=== PATIENT | male | born 1990 | race Caucasian/White ===

== ENCOUNTER 2016-05-24 09:59 | Emergency (ER) | payer OTHER ==
[~2016-05-24] VITALS: Ht 188 cm; Wt 109.1 kg
[2016-05-24 10:00] VITALS: BP 150/93; PULSE 92; RESP 18; O2SAT 98
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
--- NOTE | 2016-05-24 11:06 | DRSVH ---
PROCEDURE: X-RAY LEFT HAND, MINIMUM THREE VIEWS ([id number]) INDICATIONS: Head laceration. TECHNIQUE: 3 views of the hand(s) acquired. COMPARISON: None. FINDINGS: Bones: No fractures or dislocations. Carpal bones are normally aligned. No suspicious bony lesions . Soft tissues: No radiopaque foreign bodies. No suspicious soft tissue calcifications. IMPRESSION: 1. No fractures or radiopaque foreign bodies. Dictated by: Wil Maddox M.D. on 05/24/2016 at 11:04 Approved by: Wil Maddox M.D. on 05/24/2016 at 11:05
[2016-05-24] MEDS ORDERED: NPR500T PO (11:40)
[2016-05-24 12:12] VITALS: BP 129/69; PULSE 71; RESP 16; O2SAT 98
== END 2016-05-24 12:13 | disposition home or self-care (01) ==
LOC: SED 09:59
DX: S61.412A Laceration without foreign body of left hand, initial encounter (principal); W26.0XXA Contact with knife, initial encounter; Y93.89 Activity, other specified; Y92.9 Unspecified place or not applicable; Y99.8 Other external cause status; F17.200 Nicotine dependence, unspecified, uncomplicated

== ENCOUNTER 2016-06-03 16:12 | Emergency (ER) | payer OTHER ==
[~2016-06-03] VITALS: Ht 188 cm; Wt 109.1 kg
[~2016-06-03 16:12] MED LIST: NPR500T PO
[2016-06-03 16:16] VITALS: BP 122/75; PULSE 85; RESP 12; O2SAT 98
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
[2016-06-03 17:02] VITALS: BP 122/75; PULSE 85; RESP 12; O2SAT 98
== END 2016-06-03 17:02 | disposition home or self-care (01) ==
LOC: SED 16:12
DX: Z48.02 Encounter for removal of sutures (principal)